=== PATIENT | male | born 1990 | race Two or more races ===

== ENCOUNTER 2022-04-29 13:50 | Emergency (ER) | payer OTHER ==
[~2022-04-29] VITALS: Ht 172.7 cm; Wt 90.7 kg
--- NOTE | 2022-04-29 14:00 | NUR ---
BIBS C/O MID&LOWER ABD PAIN AND DIARRHEA SINCE YESTERDAY, ALSO NOTICED BLD. VITALS ARE WITHIN NORMAL LIMITS. AWAITING MD ORDERS.
[2022-04-29] MEDS ORDERED: ONDANSETRON 4 MG TAB.RAPDIS SL ONE (16:30)
[2022-04-29 16:36] LABS: BASOPHILS # (AUTO) 0.1 K/uL (0.0-0.2); BASOPHILS % (AUTO) 1.4 % (0.0-2.0); HEMATOCRIT 48 % (39-51); HEMOGLOBIN 16.2 g/dL (13.5-17.5); LYMPHOCYTES # (AUTO) 2.9 K/uL (0.8-4.8); LYMPHOCYTES % (AUTO) 33.6 % (20.0-44.0); MEAN CORPUSCULAR HGB CONC 34 g/dl (31.0-36.0); MEAN CORPUSCULAR VOLUME 94 fL (80-96); MONOCYTES # (AUTO) 0.6 K/uL (0.1-1.30); MONOCYTES % (AUTO) 7.1 % (2.0-12.0); NEUTROPHILS # (AUTO) 4.5 K/uL (1.8-8.9); NEUTROPHILS % (AUTO) 51.9 % (43.0-81.0); PLATELET COUNT (AUTO) 371 K/uL (150-450); RED BLOOD CELL COUNT(AUTO) 5.13 MIL/uL (4.5-6.0); WHITE BLOOD COUNT (AUTO) 8.7 K/uL (4.3-11.0)
[2022-04-29 17:18] LABS: CALCIUM, SERUM 9.6 mg/dL (8.5-10.1); CREATININE 0.9 mg/dL (0.6-1.3); POTASSIUM 3.9 mmol/L (3.5-5.1)
[2022-04-29 17:33] LABS: BILIRUBIN,DIRECT 0.1 mg/dL (0.0-0.2); BILIRUBIN,TOTAL 0.4 mg/dL (0.2-1.0); TOTAL PROTEIN, SERUM 8.2 g/dL (6.4-8.2)
[2022-04-29] MEDS ORDERED: IBUPROFEN 600 MG TABLET PO ONE (18:00)
[2022-04-29] MEDS ORDERED: ONDANSETRON 4 MG TAB.RAPDIS ONE (18:19)
[2022-04-29] MEDS ORDERED: IBUPROFEN 600 MG TABLET ONE (18:19)
[2022-04-29] MEDS ORDERED: DICY10CA37 PO (18:26)
[2022-04-29] MEDS ORDERED: ONDA4TAB5 PO (18:26)
--- NOTE | 2022-04-29 18:30 | NUR ---
Patient discharged to home in stable condition. Written and verbal after care instructions given. Patient verbalizes understanding of instruction.
[2022-04-29 18:59] VITALS: BP 129/74
== END 2022-04-29 18:59 | disposition home or self-care (01) ==
LOC: ER 14:24
DX: A08.4 Viral intestinal infection, unspecified (principal); Z79.899 Other long term (current) drug therapy
CPT/HCPCS: 36415; 76700; 80048; 80076; 83690; 85025; 85730; 99284; Q0162